=== PATIENT | male | born 1965 | race Two or more races ===

== ENCOUNTER 2022-12-12 13:23 | Emergency (ER) | payer MEDICAID ==
[~2022-12-12] VITALS: Ht 170.2 cm; Wt 90.7 kg
[2022-12-12 16:26] VITALS: BP 170/99
== END 2022-12-12 16:29 | disposition home or self-care (01) ==
LOC: ER 13:33
DX: S82.402A Unspecified fracture of shaft of left fibula, initial encounter for closed fracture (principal); Z60.2 Problems related to living alone; X58.XXXA Exposure to other specified factors, initial encounter; Y93.89 Activity, other specified; Y92.89 Other specified places as the place of occurrence of the external cause; Y99.8 Other external cause status
CPT/HCPCS: 73610-TC